=== PATIENT | male | born 1965 | race Caucasian/White ===

== ENCOUNTER 2017-12-28 02:52 | Emergency (ER) | payer MEDICARE ==
[~2017-12-28] VITALS: Ht 185.4 cm; Wt 108.4 kg
== END 2017-12-28 03:25 | disposition left against medical advice (07) ==
LOC: ER 02:52
DX: M54.5 Low back pain (principal); G89.29 Other chronic pain; B19.20 Unspecified viral hepatitis C without hepatic coma; R00.0 Tachycardia, unspecified; F17.210 Nicotine dependence, cigarettes, uncomplicated